=== PATIENT | male | born 1970 | race Caucasian/White ===

== ENCOUNTER 2016-09-15 11:27 | Emergency (ER) | payer OTHER ==
[2016-09-15] MEDS ORDERED: Ondansetron 4 MG/2 ML SDV IVPUSH ONE (11:32)
[2016-09-15] MEDS ORDERED: Sodium Chloride 0.9% 1,000 ML IV ONE (11:32)
[2016-09-15] MEDS ORDERED: Ketorolac 30 MG/ML SDV IVPUSH ONE (11:32)
--- NOTE | 2016-09-15 11:37 | EDM.PDOC ---
ED HPI GENERAL MEDICAL PROBLEM - General Chief Complaint: Flank Pain Stated Complaint: FELL OF WAVE RUNNER 2 DAYS AGO Time Seen by Provider: 09/15/16 11:35 Source of Information: Reports: Patient - History of Present Illness INITIAL COMMENTS - FREE TEXT/NARRATIVE: HISTORY AND PHYSICAL: History of present illness: []Patient has right flank pain that began 2 days ago he attributes to working on a wave runner States initially pain was only 2 out of 10 at is increased over last 2-3 days. He rates 8 out of 10 and seems willing to the right lower quadrant No fever nausea vomiting chills sweats Review of systems: As per history of present illness and below otherwise all systems reviewed and negative. Past medical history: As per history of present illness and as reviewed below otherwise noncontributory. Surgical history: As per history of present illness and as reviewed below otherwise noncontributory. Social history: No reported history of drug or alcohol abuse. Family history: As per history of present illness and as reviewed below otherwise noncontributory. Physical exam: HEENT: Atraumatic, normocephalic, pupils reactive, negative for conjunctival pallor or scleral icterus, mucous membranes moist, throat clear, neck supple, nontender, trachea midline. Lungs: Clear to auscultation, breath sounds equal bilaterally, chest nontender. Heart: S1S2, regular, negative for clicks, rubs, or JVD. Abdomen: Soft, obese, nondistended, tender right lower quadrant with guarding Negative for masses or hepatosplenomegaly. Negative for costovertebral tenderness. Pelvis: Stable nontender. Genitourinary: Deferred. Rectal: Deferred. Extremities: Atraumatic, negative for cords or calf pain. Neurovascular unremarkable. Neuro: Awake, alert, oriented. Cranial nerves II through XII unremarkable. Cerebellum unremarkable. Motor and sensory unremarkable throughout. Exam nonfocal. Diagnostics: []CBC, CMP, UA, culture CT abdomen pelvis with and without contrast Therapeutics: []Normal saline 1 L bolus Zofran 8 mg IV Toradol 30 mg IV Morphine 2 mg IV Solu-Medrol 125 mg IV Flomax 0.8 mg by mouth now Filter urine collection equipment Moxtrafran Keflex Impression: 2 mm ureteral stone UVJ []Right flank pain /Right lower quadrant pain Definitive disposition and diagnosis as appropriate pending reevaluation and review of above. Right Flank Pain Score (Numeric/FACES): 9 - Related Data Allergies Allergy/AdvReac Type Severity Reaction Status Date / Time No Known Allergies Allergy Verified 09/15/16 11:36 Home Meds: Home Meds . [No Known Home Meds] 09/15/16 [History] Past Medical History Cardiovascular History: Reports: Hypertension - Past Surgical History HEENT Surgical History: Reports: Oral Surgery Social & Family History - Tobacco Use Smoking Status *Q: Never Smoker Years of Tobacco use: 25 - Alcohol Use Days Per Week of Alcohol Use: 1 Number of Drinks Per Day: 1 Total Drinks Per Week: 1 - Recreational Drug Use Recreational Drug Use: No ED ROS GENERAL - Review of Systems Review Of Systems: See Below ED EXAM, GENERAL - Physical Exam Exam: See Below Course - Vital Signs Last Recorded V/S: Last Vital Signs Temp 36.7 C 09/15/16 13:20 Pulse 89 09/15/16 13:49 Resp 16 09/15/16 13:49 BP 193/99 H 09/15/16 13:49 Pulse Ox 95 09/15/16 13:49 - Orders/Labs/Meds Orders: Active Orders 24 hr Category Date Time Status Abdomen Pelvis w wo Cont [CT] Stat Exams 09/15/16 11:35 Taken Tamsulosin [Flomax] Med 09/16/16 08:30 Active 0.8 mg PO PCBREAKFAST Medication Orders Tamsulosin HCl (Flomax) 0.8 mg PO PCBREAKFAST NAOMI Labs: Laboratory Tests 09/15/16 09/15/16 09/15/16 Range/Units 11:40 11:40 12:00 WBC 12.75 H (4.0-11.0) K/uL RBC 5.48 (4.50-5.90) M/uL Hgb 17.1 H (13.0-17.0) g/dL Hct 48.5 (38.0-50.0) % MCV 88.5 (80.0-98.0) fL MCH 31.2 (27.0-32.0) pg MCHC 35.3 (31.0-37.0) g/dL RDW Std Deviation 42.5 (28.0-62.0) fl RDW Coeff of Richard 13 (11.0-15.0) % Plt Count 177 (150-400) K/uL MPV 10.90 (7.40-12.00) fL Neut % (Auto) 84.9 H (48.0-80.0) % Lymph % (Auto) 8.5 L (16.0-40.0) % [place] % (Auto) 5.5 (0.0-15.0) % Eos % (Auto) 0.9 (0.0-7.0) % Baso % (Auto) 0.2 (0.0-1.5) % Neut # (Auto) 10.8 H (1.4-5.7) K/uL Lymph # (Auto) 1.1 (0.6-2.4) K/uL [place] # (Auto) 0.7 (0.0-0.8) K/uL Eos # (Auto) 0.1 (0.0-0.7) K/uL Baso # (Auto) 0.0 (0.0-0.1) K/uL Nucleated RBC % 0.1 /100WBC Nucleated RBCs # 0 K/uL Sodium 144 (136-146) mmol/L Potassium 4.1 (3.5-5.1) mmol/L Chloride 107 (98-110) mmol/L Carbon Dioxide 27 (21-31) mmol/L BUN 8 (6.0-23.0) mg/dL Creatinine 1.3 (0.6-1.5) mg/dL Est Cr Clr Drug Dosing 67.79 mL/min Estimated GFR (MDRD) 60.0 ml/min Glucose 143 H (60-110) mg/dL Calcium 9.1 (8.8-10.8) mg/dL Total Bilirubin 0.6 (0.1-1.5) mg/dL AST 24 (5-40) IU/L ALT 37 (8-54) IU/L Alkaline Phosphatase 89 (40-150) Total Protein 7.2 (6.0-8.0) g/dL Albumin 4.3 (3.5-5.0) g/dL Globulin 2.9 (2.0-3.5) g/dL Albumin/Globulin Ratio 1.5 (1.3-2.8) Urine Color YELLOW Urine Appearance CLEAR Urine pH 6.0 (5.0-8.0) Ur Specific [place] 1.025 (1.001-1.035) Urine Protein 30 (NEGATIVE) mg/dL Urine Glucose (UA) NEGATIVE (NEGATIVE) mg/dL Urine Ketones NEGATIVE (NEGATIVE) mg/dL Urine Occult Blood LARGE H (NEGATIVE) Urine Nitrite NEGATIVE (NEGATIVE) Urine Bilirubin NEGATIVE (NEGATIVE) Urine Urobilinogen 0.2 (<2.0) EU/dL Ur Leukocyte Esterase NEGATIVE (NEGATIVE) Urine RBC 75-100 (0-2/HPF) Urine WBC 1-2 (0-5/HPF) Ur Epithelial Cells RARE (NONE-FEW) Urine Bacteria FEW (NEGATIVE) Urine Mucus LIGHT (NONE-MOD) Meds: Medications Generic Name Dose Route Start Last Admin Trade Name Freq PRN Reason Stop Dose Admin Tamsulosin HCl 0.8 mg 09/16/16 08:30 Flomax PO PCBREAKFAST NAOMI Discontinued Medications Generic Name Dose Route Start Last Admin Trade Name Freq PRN Reason Stop Dose Admin Sodium Chloride 1,000 mls @ 999 mls/hr 09/15/16 11:32 09/15/16 11:58 Normal Saline IV 09/15/16 12:32 999 mls/hr STAT ONE Administration Iopamidol 100 ml 09/15/16 11:45 09/15/16 11:46 Isovue Multipack-370 (76%) IVPUSH 09/15/16 11:46 100 ml ONETIME STA Administration Ketorolac Tromethamine 30 mg 09/15/16 11:32 09/15/16 12:03 Toradol IVPUSH 09/15/16 11:33 30 mg ONETIME ONE Administration Methylprednisolone Sodium Succinate 125 mg 09/15/16 14:03 Solu-Medrol IVPUSH 09/15/16 14:04 ONETIME ONE Morphine Sulfate 2 mg 09/15/16 13:33 Morphine IV 09/15/16 13:34 ONETIME ONE Ondansetron HCl 8 mg 09/15/16 11:32 09/15/16 11:58 Zofran IVPUSH 09/15/16 11:33 8 mg ONETIME ONE Administration Departure - Departure Time of Disposition: 14:07 Disposition: Home, Self-Care 01 Condition: Good Clinical Impression: Ureteral stone - Discharge Information Forms: ED Department Discharge Additional Instructions: Medication as prescribed Return if symptoms persist or worsen or fever develops Follow-up with urology call for appropriate follow-up [facility] - Urology [address] [place] [id number] The following information is given to patients seen in the emergency department who are being discharged to home. This information is to outline your options for follow-up care. We provide all patients seen in our emergency department with a follow-up referral. The need for follow-up, as well as the timing and circumstances, are variable depending upon the specifics of your emergency department visit. If you don't have a primary care physician on staff, we will provide you with a referral. We always advise you to contact your personal physician following an emergency department visit to inform them of the circumstance of the visit and for follow-up with them and/or the need for any referrals to a consulting specialist. The emergency department will also refer you to a specialist when appropriate. This referral assures that you have the opportunity for follow-up care with a specialist. All of these measure are taken in an effort to provide you with optimal care, which includes your follow-up. Under all circumstances we always encourage you to contact your private physician who remains a resource for coordinating your care. When calling for follow-up care, please make the office aware that this follow-up is from your recent emergency room visit. If for any reason you are refused follow-up, please contact the [facility] emergency department at and asked to speak to the emergency department charge nurse. - My Orders Last 24 Hours: My Active Orders 09/15/16 11:35 Abdomen Pelvis w wo Cont [CT] Stat 09/16/16 08:30 Tamsulosin [Flomax] 0.8 mg PO PCBREAKFAST - Assessment/Plan Last 24 Hours: My Active Orders 09/15/16 11:35 Abdomen Pelvis w wo Cont [CT] Stat 09/16/16 08:30 Tamsulosin [Flomax] 0.8 mg PO PCBREAKFAST
[2016-09-15] MEDS ORDERED: Iopamidol 755 MG/ML 500 ML Multipack Bottle IVPUSH STA (11:45)
[2016-09-15] MEDS ORDERED: Morphine 10 MG/ML Syringe IV ONE (13:33)
[2016-09-15] MEDS ORDERED: methylPREDNISolone Sodium Succinate 125 MG/2 ML SDV IVPUSH ONE (14:03)
[2016-09-15] MEDS ORDERED: Tamsulosin 0.4 MG Cap.ER PO SCH (14:52)
[2016-09-15] MEDS ORDERED: Tamsulosin 0.4 MG Cap.ER PO ONE (15:05)
[2016-09-15 15:07] VITALS: BP 161/98
--- NOTE | 2016-09-15 17:43 | CT ---
EXAM DATE: 09/15/16 PATIENT'S AGE: 46 Patient: NOELLE CARTER Facility: [place], [place] Site . Site : 1970 Study: CT Abdomen/Pelvis [id number] 12:56:45 PM Ordering Physician: Lopez Reno Final Report: INDICATION: TRAUMA TO RLQ YESTERDAY DIFFICULTY URINATING CT ABDOMEN AND PELVIS WITHOUT AND WITH CONTRAST TECHNIQUE: Multidetector CT imaging was performed through the abdomen and pelvis prior to and following intravenous contrast administration using 100 mL Isovue 370. Coronal and sagittal reconstructions were generated. COMPARISON: None. FINDINGS: Lower chest: Lung bases are clear. Liver: Unremarkable aside from a few tiny subcentimeter hypodensities which are not well characterized but most likely represent tiny liver cysts. Gallbladder and bile ducts: No gallbladder wall thickening or calcified gallstones. No biliary dilation identified. Pancreas: Unremarkable. Spleen: Normal. Adrenals: No nodules or masses. Kidneys, ureters, and urinary bladder: 2 millimeter obstructing stone in the distal right ureter at the ureterovesical junction on image 132 of series 201 producing mild dilation of the right ureter and mild right hydronephrosis. A small 3 millimeter nonobstructing stone is noted in the lower pole of the left kidney. No renal masses. No bladder mass or definite wall thickening. Gastrointestinal tract: Normal caliber bowel without wall thickening. The appendix is normal. Vascular structures: Normal for age. Peritoneum: No free air, abscess, or significant free fluid. Lymph nodes: No pathologically enlarged nodes identified. Reproductive organs: No pelvic masses. Bones: Normal for age. IMPRESSION: 1. Obstructing 2 millimeter stone in the distal right ureter at the UVJ producing mild right hydroureteronephrosis. 2. Small nonobstructing left intrarenal stone. TONE ALDRICH MD [employer] Dictated by Nelson Aldrich MD @ 09/15/2016 1:41:13 PM Dictated by: Nelson Aldrich MD @ 09/15/2016 13:43:22 (Electronic Signature) Report Signed by Proxy. KNICKERBOCKER HOSPITALJulianne
[2016-09-16] MEDS ORDERED: Tamsulosin 0.4 MG Cap.ER PO SCH (08:30)
== END 2016-09-15 15:31 | disposition home or self-care (01) ==
LOC: MW.ED 11:27
DX: N13.2 Hydronephrosis with renal and ureteral calculous obstruction (principal); I10 Essential (primary) hypertension
CPT/HCPCS: 36415; 74178; 80053; 81001; 85025; 96361; 96374; 96375; 99284; A9270; J1885; J2270; J2405; J2930; J7040; Q9967; 99283

== ENCOUNTER 2017-03-13 16:36 | Emergency (ER) | payer OTHER ==
[2017-03-13 16:50] VITALS: BP 173/93
[2017-03-13] MEDS ORDERED: Octyl 2-Cyanoacrylate 1 Tube TOP ONE (17:10)
--- NOTE | 2017-03-13 18:03 | EDM.PDOC ---
ED HPI GENERAL MEDICAL PROBLEM - General Chief Complaint: Laceration Stated Complaint: LACERATION LT CHEEK Time Seen by Provider: 03/13/17 16:40 Source of Information: Reports: Patient History Limitations: Reports: No Limitations - History of Present Illness INITIAL COMMENTS - FREE TEXT/NARRATIVE: History of present illness: [46-year-old male presenting with an acute laceration to the left cheek with a slightly cilnt plumbing trouble. Patient indicates he was working in his kitchen trying to get a pipe open and a friend "drawer and it will box fell and struck him in the side of the face. Denies any dizziness, loss of consciousness and/or vomiting. Indicates that he just has this current on his face and he thought he might need stitches so he came in.] Review of systems: As per history of present illness and below otherwise all systems reviewed and negative. Past medical history: As per history of present illness and as reviewed below otherwise noncontributory. Surgical history: As per history of present illness and as reviewed below otherwise noncontributory. Social history: No reported history of drug or alcohol abuse. Family history: As per history of present illness and as reviewed below otherwise noncontributory. Physical exam: HEENT: Atraumatic, normocephalic, pupils reactive, negative for conjunctival pallor or scleral icterus, mucous membranes moist, throat clear, neck supple, nontender, trachea midline. Lungs: Clear to auscultation, breath sounds equal bilaterally, chest nontender. Heart: S1S2, regular, negative for clicks, rubs, or JVD. Abdomen: Soft, nondistended, nontender. Negative for masses or hepatosplenomegaly. Negative for costovertebral tenderness. Pelvis: Stable nontender. Genitourinary: Deferred. Rectal: Deferred. Extremities: Atraumatic, negative for cords or calf pain. Neurovascular unremarkable. Neuro: Awake, alert, oriented. Cranial nerves II through XII unremarkable. Cerebellum unremarkable. Motor and sensory unremarkable throughout. Exam nonfocal. Goal assessment is benign save the somewhat superficial laceration on the left cheek. Cheek cleaned by nursing staff edges approximated well wound sealed with Dermabond laceration is approximately 10 cm long from the orthodox area down to mid cheek. Diagnostics: [] Therapeutics: [Steri-Strips to approximate edges Sealed with Dermabond] Impression: [Laceration approximately 10 cm] Plan: [Steri-Strips Dermabond follow-up primary care] Definitive disposition and diagnosis as appropriate pending reevaluation and review of above. - Related Data Allergies Allergy/AdvReac Type Severity Reaction Status Date / Time No Known Allergies Allergy Verified 03/13/17 16:46 Home Meds: Home Meds Lisinopril 2.5 mg PO DAILY 03/13/17 [History] Past Medical History HEENT History: Reports: None Cardiovascular History: Reports: Hypertension Respiratory History: Reports: None Gastrointestinal History: Reports: None Genitourinary History: Reports: None Musculoskeletal History: Reports: None Neurological History: Reports: None Psychiatric History: Reports: None Endocrine/Metabolic History: Reports: None Hematologic History: Reports: None Immunologic History: Reports: None Oncologic (Cancer) History: Reports: None Dermatologic History: Reports: None - Infectious Disease History Infectious Disease History: Reports: Chicken Pox - Past Surgical History Head Surgeries/Procedures: Reports: None HEENT Surgical History: Reports: Oral Surgery Cardiovascular Surgical History: Reports: None Respiratory Surgical History: Reports: None GI Surgical History: Reports: None Male Surgical History: Reports: None Endocrine Surgical History: Reports: None Neurological Surgical History: Reports: None Musculoskeletal Surgical History: Reports: Other (See Below) Other Musculoskeletal Surgeries/Procedures:: right collar bone -metal Oncologic Surgical History: Reports: None Dermatological Surgical History: Reports: None Social & Family History - Family History Family Medical History: Noncontributory - Tobacco Use Smoking Status *Q: Current Every Day Smoker Years of Tobacco use: 4 Packs/Tins Daily: 0.5 - Caffeine Use Caffeine Use: Reports: Energy Drinks Caffeine Use Comment: 1 gal/day - Alcohol Use Days Per Week of Alcohol Use: 1 Number of Drinks Per Day: 1 Total Drinks Per Week: 1 - Recreational Drug Use Recreational Drug Use: No ED ROS GENERAL - Review of Systems Review Of Systems: See Below (see history of present illness) ED EXAM, SKIN/RASH Exam: See Below (History of present illness) Course - Vital Signs Last Recorded V/S: Last Vital Signs Temp 37.5 C 03/13/17 16:47 Pulse 68 03/13/17 16:47 Resp 18 03/13/17 16:47 BP 173/93 H 03/13/17 16:47 Pulse Ox 95 03/13/17 16:47 - Orders/Labs/Meds Meds: Medications Discontinued Medications Generic Name Dose Route Start Last Admin Trade Name Oscar PRN Reason Stop Dose Admin Octyl Cyanoacrylate 1 applic 03/13/17 17:10 03/13/17 17:20 Dermabond Advance TOP 03/13/17 17:11 1 applic ONETIME ONE Administration Departure - Departure Time of Disposition: 18:03 Disposition: Home, Self-Care 01 Condition: Good Clinical Impression: Laceration - Discharge Information Instructions: Stitches, [place], or Adhesive Wound Closure, [id number], Laceration Care, Adult, [id number] Referrals: PCP,None [Primary Care Provider] - Additional Instructions: The following information is given to patients seen in the emergency department who are being discharged to home. This information is to outline your options for follow-up care. We provide all patients seen in our emergency department with a follow-up referral. The need for follow-up, as well as the timing and circumstances, are variable depending upon the specifics of your emergency department visit. If you don't have a primary care physician on staff, we will provide you with a referral. We always advise you to contact your personal physician following an emergency department visit to inform them of the circumstance of the visit and for follow-up with them and/or the need for any referrals to a consulting specialist. The emergency department will also refer you to a specialist when appropriate. This referral assures that you have the opportunity for follow-up care with a specialist. All of these measure are taken in an effort to provide you with optimal care, which includes your follow-up. Under all circumstances we always encourage you to contact your private physician who remains a resource for coordinating your care. When calling for follow-up care, please make the office aware that this follow-up is from your recent emergency room visit. If for any reason you are refused follow-up, please contact the [facility] Emergency Department at and asked to speak to the emergency department charge nurse. Care for your laceration as discussed All the primary care as needed as discussed
== END 2017-03-13 18:15 | disposition home or self-care (01) ==
LOC: MW.ED 16:36
DX: S01.412A Laceration without foreign body of left cheek and temporomandibular area, initial encounter (principal); I10 Essential (primary) hypertension; F17.210 Nicotine dependence, cigarettes, uncomplicated; Z79.899 Other long term (current) drug therapy; W20.8XXA Other cause of strike by thrown, projected or falling object, initial encounter
CPT/HCPCS: 12015; 99282; A9270

== ENCOUNTER 2018-06-05 07:40 | Emergency (ER) | payer OTHER ==
--- NOTE | 2018-06-05 07:54 | EDM.PDOC ---
ED HPI GENERAL MEDICAL PROBLEM - General Chief Complaint: General Stated Complaint: MEDICAL CLEARANCE Time Seen by Provider: 06/05/18 07:54 Source of Information: Reports: Patient, Police - History of Present Illness INITIAL COMMENTS - FREE TEXT/NARRATIVE: HISTORY AND PHYSICAL: History of present illness: [Patient presents for medical screening He is currently under arrest, officer has no concerns such as trauma or motor vehicle accident apparently has a history of hypertension is not taken his medication, he plans to aguilar out today so a long status not anticipated he does need his medications today He has no symptoms such as fever nausea vomiting chills sweats no chest pain shortness breath headache dizziness palpitation no bowel or urine symptoms ] Review of systems: As per history of present illness and below otherwise all systems reviewed and negative. Past medical history: As per history of present illness and as reviewed below otherwise noncontributory. Surgical history: As per history of present illness and as reviewed below otherwise noncontributory. Social history: No reported history of drug or alcohol abuse. Family history: As per history of present illness and as reviewed below otherwise noncontributory. Physical exam: HEENT: Atraumatic, normocephalic, pupils reactive, negative for conjunctival pallor or scleral icterus, mucous membranes moist, throat clear, neck supple, nontender, trachea midline. Lungs: Clear to auscultation, breath sounds equal bilaterally, chest nontender. Heart: S1S2, regular, negative for clicks, rubs, or JVD. Abdomen: Soft, nondistended, nontender. Negative for masses or hepatosplenomegaly. Negative for costovertebral tenderness. Pelvis: Stable nontender. Genitourinary: Deferred. Rectal: Deferred. Extremities: Atraumatic, negative for cords or calf pain. Neurovascular unremarkable. Neuro: Awake, alert, oriented. Cranial nerves II through XII unremarkable. Cerebellum unremarkable. Motor and sensory unremarkable throughout. Exam nonfocal. Diagnostics: [Clinical ] Therapeutics: [Clonidine Lisinopril ] Impression: [ hypertension -medication noncompliant Medical screening exam] Definitive disposition and diagnosis as appropriate pending reevaluation and review of above. - Related Data Allergies Allergy/AdvReac Type Severity Reaction Status Date / Time No Known Allergies Allergy Verified 06/05/18 07:52 Home Meds: Home Meds Lisinopril 2.5 mg PO DAILY 03/13/17 [History] Non-Formulary Medication [NF Drug] 1 tab PO BID 06/05/18 [History] Past Medical History HEENT History: Reports: None Cardiovascular History: Reports: Hypertension Respiratory History: Reports: None Gastrointestinal History: Reports: None Genitourinary History: Reports: None Musculoskeletal History: Reports: None Neurological History: Reports: None Psychiatric History: Reports: None Endocrine/Metabolic History: Reports: None Hematologic History: Reports: None Immunologic History: Reports: None Oncologic (Cancer) History: Reports: None Dermatologic History: Reports: None - Infectious Disease History Infectious Disease History: Reports: Chicken Pox - Past Surgical History Head Surgeries/Procedures: Reports: None HEENT Surgical History: Reports: Oral Surgery Cardiovascular Surgical History: Reports: None Respiratory Surgical History: Reports: None GI Surgical History: Reports: None Male Surgical History: Reports: None Endocrine Surgical History: Reports: None Neurological Surgical History: Reports: None Musculoskeletal Surgical History: Reports: Other (See Below) Other Musculoskeletal Surgeries/Procedures:: right collar bone -metal Oncologic Surgical History: Reports: None Dermatological Surgical History: Reports: None Social & Family History - Family History Family Medical History: Noncontributory - Caffeine Use Caffeine Use: Reports: Energy Drinks Caffeine Use Comment: 1 gal/day ED ROS GENERAL - Review of Systems Review Of Systems: See Below ED EXAM, GENERAL - Physical Exam Exam: See Below Course - Vital Signs Last Recorded V/S: Last Vital Signs Temp 96.5 F 06/05/18 07:49 Pulse 99 06/05/18 07:49 Resp 18 06/05/18 07:49 BP 196/124 H 06/05/18 08:30 Pulse Ox 96 06/05/18 07:49 - Orders/Labs/Meds Meds: Medications Discontinued Medications Generic Name Dose Route Start Last Admin Trade Name Freq PRN Reason Stop Dose Admin Clonidine HCl 0.1 mg 06/05/18 08:05 06/05/18 08:30 Catapres PO 06/05/18 08:06 0.1 mg ONETIME ONE Administration Lisinopril 10 mg 06/05/18 08:05 06/05/18 08:29 Prinivil PO 06/05/18 08:06 10 mg ONETIME ONE Administration Departure - Departure Time of Disposition: 08:32 Disposition: Home, Self-Care 01 Condition: Good Clinical Impression: Encounter for medical screening examination - Discharge Information Referrals: PCP,None [Primary Care Provider] - Forms: ED Department Discharge Additional Instructions: The following information is given to patients seen in the emergency department who are being discharged to home. This information is to outline your options for follow-up care. We provide all patients seen in our emergency department with a follow-up referral. The need for follow-up, as well as the timing and circumstances, are variable depending upon the specifics of your emergency department visit. If you don't have a primary care physician on staff, we will provide you with a referral. We always advise you to contact your personal physician following an emergency department visit to inform them of the circumstance of the visit and for follow-up with them and/or the need for any referrals to a consulting specialist. The emergency department will also refer you to a specialist when appropriate. This referral assures that you have the opportunity for follow-up care with a specialist. All of these measure are taken in an effort to provide you with optimal care, which includes your follow-up. Under all circumstances we always encourage you to contact your private physician who remains a resource for coordinating your care. When calling for follow-up care, please make the office aware that this follow-up is from your recent emergency room visit. If for any reason you are refused follow-up, please contact the [facility] emergency department at and asked to speak to the emergency department charge nurse.
[2018-06-05] MEDS ORDERED: Lisinopril 10 MG Tab PO ONE (08:05)
[2018-06-05] MEDS ORDERED: cloNIDine 0.1 MG Tab PO ONE (08:05)
[2018-06-05 09:18] VITALS: BP 185/126
== END 2018-06-05 09:19 | disposition home or self-care (01) ==
LOC: MW.ED 07:40
DX: I10 Essential (primary) hypertension (principal); Z91.14 Patient's other noncompliance with medication regimen; Z79.899 Other long term (current) drug therapy
CPT/HCPCS: 99283; A9270

== ENCOUNTER 2018-07-19 22:56 | Emergency (ER) | payer OTHER ==
--- NOTE | 2018-07-19 23:22 | EDM.PDOC ---
ED HPI GENERAL MEDICAL PROBLEM - General Chief Complaint: Upper Extremity Injury/Pain Stated Complaint: RT HAND HURTS Time Seen by Provider: 07/19/18 23:14 - History of Present Illness INITIAL COMMENTS - FREE TEXT/NARRATIVE: HISTORY AND PHYSICAL: History of present illness: The patient is a 48-year-old male who presents with complaints of pain to bilateral hands and the right wrist after he was sandblasting a car and the sandblaster shot stand at his hands bilaterally and right wrist. The patient is up-to-date on his tetanus shot and had no systemic complaints prior to these events. The patient says he can wiggle his fingers and feel his hands but there is pain at the wounds. He said that he did clean the areas with alcohol and peroxide. He has no proximal forearm elbow or shoulder tenderness bilaterally. He is left-hand dominant. He says he can move all of his fingers without difficulty. He was concerned because the sand was injected into his hands. He says it feels rough. The patient was not hit or contacted by the machine just the sand itself which was under significant force. Review of systems: As per history of present illness and below otherwise all systems reviewed and negative. Past medical history: As per history of present illness and as reviewed below otherwise noncontributory. Surgical history: As per history of present illness and as reviewed below otherwise noncontributory. Social history: No reported history of drug or alcohol abuse. Family history: As per history of present illness and as reviewed below otherwise noncontributory. Physical exam: HEENT: Atraumatic, normocephalic, negative for conjunctival pallor or scleral icterus, mucous membranes moist, throat clear, neck supple, nontender, trachea midline. Lungs: Clear to auscultation with some scattered wheezing but no worker breathing or stridor, breath sounds equal bilaterally, chest nontender. Heart: S1S2, regular rate and rhythm no overt murmurs Abdomen: Soft, nondistended, nontender. NABS Pelvis: Stable nontender. Genitourinary: Deferred. Rectal: Deferred. Extremities: Atraumatic with full range of motion of all extremities with the exception of bilateral palmar surface of hands where at the thenar eminences bilaterally there is soft tissue swelling and some minimal tenderness and a rough-like texture consistent with the infused sand. The wound extends up the volar aspect of the right wrist to the proximal third of the forearm with the erythema and palpable sand and roughness without any gross soft tissue swelling in the compartments are all soft. The patient has full range of motion of all of his digits including his thumb and good strength. The legs are, negative for cords or calf pain. Neurovascular unremarkable. Neuro: Awake, alert, oriented. Cranial nerves II through XII unremarkable. Cerebellum unremarkable. Motor and sensory unremarkable throughout. Exam nonfocal. Diagnostics: Bilateral hand x-rays, right wrist x-ray Therapeutics: Case was discussed with orthopedics community relations director at [facility], Dr. Bhakta. He agrees that expectant symptomatic care would be appropriate as the patient has full function in his wrist and hands bilaterally. I will give the patient antibiotics as these are multiple puncture wounds and I will advise him on symptomatic care. I will give him ortho follow-up as well as hand follow-up. Impression: Bilateral hands, right wrist injuries, foreign body exposure Definitive disposition and diagnosis as appropriate pending reevaluation and review of above. Right Wrist Pain Score (Numeric/FACES): 4 - Related Data Allergies Allergy/AdvReac Type Severity Reaction Status Date / Time No Known Allergies Allergy Verified 07/19/18 23:02 Home Meds: Home Meds Lisinopril 2.5 mg PO DAILY 03/13/17 [History] Non-Formulary Medication [NF Drug] 1 tab PO BID 06/05/18 [History] Past Medical History HEENT History: Reports: None Cardiovascular History: Reports: Hypertension Respiratory History: Reports: None Gastrointestinal History: Reports: None Genitourinary History: Reports: None Musculoskeletal History: Reports: None Neurological History: Reports: None Psychiatric History: Reports: None Endocrine/Metabolic History: Reports: None Hematologic History: Reports: None Immunologic History: Reports: None Oncologic (Cancer) History: Reports: None Dermatologic History: Reports: None - Infectious Disease History Infectious Disease History: Reports: Chicken Pox - Past Surgical History Head Surgeries/Procedures: Reports: None HEENT Surgical History: Reports: Oral Surgery Cardiovascular Surgical History: Reports: None Respiratory Surgical History: Reports: None GI Surgical History: Reports: None Male Surgical History: Reports: None Endocrine Surgical History: Reports: None Neurological Surgical History: Reports: None Musculoskeletal Surgical History: Reports: Other (See Below) Other Musculoskeletal Surgeries/Procedures:: right collar bone -metal Oncologic Surgical History: Reports: None Dermatological Surgical History: Reports: None Social & Family History - Family History Family Medical History: Noncontributory - Caffeine Use Caffeine Use: Reports: Energy Drinks Caffeine Use Comment: 1 gal/day Review of Systems - Review of Systems Review Of Systems: ROS reveals no pertinent complaints other than HPI. ED EXAM, GENERAL - Physical Exam Exam: See Below (See dictation) Course - Vital Signs Last Recorded V/S: Last Vital Signs Temp 36.0 C 07/19/18 23:02 Pulse 104 H 07/19/18 23:02 Resp 18 07/19/18 23:02 BP 184/109 H 07/19/18 23:02 Pulse Ox 96 07/19/18 23:02 Departure - Departure Time of Disposition: 00:05 Disposition: Home, Self-Care 01 Condition: Good Clinical Impression: Foreign body (FB) in soft tissue Hand injury Qualifiers: Encounter type: initial encounter Laterality: unspecified laterality Qualified Code(s): S69.90XA - Unspecified injury of unspecified wrist, hand and finger(s) , initial encounter Right wrist injury Qualifiers: Encounter type: initial encounter Qualified Code(s): S69.91XA - Unspecified injury of right wrist, hand and finger(s), initial encounter - Discharge Information Referrals: PCP,None [Primary Care Provider] - Forms: ED Department Discharge Additional Instructions: The following information is given to patients seen in the emergency department who are being discharged to home. This information is to outline your options for follow-up care. We provide all patients seen in our emergency department with a follow-up referral. The need for follow-up, as well as the timing and circumstances, are variable depending upon the specifics of your emergency department visit. If you don't have a primary care physician on staff, we will provide you with a referral. We always advise you to contact your personal physician following an emergency department visit to inform them of the circumstance of the visit and for follow-up with them and/or the need for any referrals to a consulting specialist. The emergency department will also refer you to a specialist when appropriate. This referral assures that you have the opportunity for followup care with a specialist. All of these measure are taken in an effort to provide you with optimal care, which includes your followup. Under all circumstances we always encourage you to contact your private physician who remains a resource for coordinating your care. When calling for followup care, please make the office aware that this follow-up is from your recent emergency room visit. If for any reason you are refused follow-up, please contact the [facility] emergency department at and ask to speak to the emergency department charge nurse. [facility] Specialty Care--Orthopedic clinic Professional [address] [address] [facility] Specialty clinic-Plastic Surgery and Hand Surgery [address] [address] Please connect with both our orthopedics clinic and our hand specialists for further care and evaluation of this injury. Ice and elevate and cleanse with mild soap and water do not use peroxide or alcohol. Please take antibiotics as prescribed from [facility], Augmentin. Use is [id number] Tylenol or ibuprofen for pain management and return to ER as needed and as discussed
--- NOTE | 2018-07-19 23:39 | CR ---
INDICATION: Hand injury from trauma TECHNIQUE: Hand radiograph 3 views right COMPARISON: None FINDINGS: Bone: No acute fractures or aggressive bone lesions are identified. Joint: The carpal and metacarpal-phalangeal joints are unremarkable in appearance. The interphalangeal joints are normal in appearance. Soft tissue: There is scattered punctate densities along the radial soft tissues of the distal forearm. IMPRESSIONS: 1. No acute osseous injuries or abnormalities are noted. 2. There is scattered punctate densities along the radial soft tissues of the distal forearm. Correlation with physical exam would be helpful to distinguish between overlying artifacts or small foreign bodies. Dictated by Vineet Cao MD @ 07/19/2018 11:38:26 PM Dictated by: Vineet Cao MD @ 07/19/2018 23:38:31 (Electronically Signed)
--- NOTE | 2018-07-19 23:41 | CR ---
INDICATION: trauma INDICATION: Thumb TECHNIQUE: Three views left hand COMPARISON: None FINDINGS: Bones: Alignment is normal. No fractures or bone lesions. Joint spaces: Unremarkable. Soft tissues: Unremarkable. IMPRESSION: Negative. Dictated by Last Knowles MD @ 07/19/2018 11:39:12 PM Dictated by: Last Knowles MD @ 07/19/2018 23:39:20 (Electronically Signed)
--- NOTE | 2018-07-19 23:41 | CR ---
INDICATION: Wrist injury from trauma TECHNIQUE: Wrist radiograph 2 views right COMPARISON: None FINDINGS: Bone: No acute fractures or aggressive bone lesions are identified. Joint: The radiocarpal, carpal, and carpometacarpal joints are unremarkable in appearance. Soft tissue: Multiple small densities are present in the soft tissues along the radial aspect of the wrist. IMPRESSIONS: 1. No acute osseous injuries or abnormalities are noted. 2. Multiple small densities are present in the soft tissues along the radial aspect of the wrist. Correlation with physical exam is recommended to exclude foreign bodies. Dictated by Vineet Cao MD @ 07/19/2018 11:39:07 PM Dictated by: Vineet Cao MD @ 07/19/2018 23:39:11 (Electronically Signed)
[2018-07-20 00:24] VITALS: BP 168/114
== END 2018-07-20 00:25 | disposition home or self-care (01) ==
LOC: MW.ED 22:56
DX: S60.552A Superficial foreign body of left hand, initial encounter (principal); S60.551A Superficial foreign body of right hand, initial encounter; S69.91XA Unspecified injury of right wrist, hand and finger(s), initial encounter; W22.8XXA Striking against or struck by other objects, initial encounter; W17.89XA Other fall from one level to another, initial encounter; Y92.009 Unspecified place in unspecified non-institutional (private) residence as the place of occurrence of the external cause
CPT/HCPCS: 73100-26-RT; 73100-RT; 73130-26-LT; 73130-26-RT; 73130-LT; 73130-RT; 99283; 99283-25